=== PATIENT | female | born 1955 | race Caucasian/White ===

== ENCOUNTER 2016-11-13 10:55 | Emergency (ER) | payer OTHER ==
[~2016-11-13] VITALS: Ht 162.6 cm; Wt 63.6 kg
[~2016-11-13 10:55] MED LIST: CIPRO 500MG TA500 MG PO; DEMEROL 50M50 MG/TAB PO; FLAGYL500 MG PO; NO HOME MEDICATIONS; NORCO 325 MG-51 TAB PO; NORCO2.5 PO; SLEEP AID25 M1 PO; ZOFRAN 4MG T4 MG/TAB PO; [UNRECOGNIZED DRUG - OTHER] PO
[2016-11-13 11:02] VITALS: TEMP 98.3
[2016-11-13 12:04] LABS: BASO # 0.1 (0.0-0.2); BASO % 0.9 % (0.0-2.0); EOS % 0.3 % (0-4.0); GRAN # 5.1 (1.4-6.5); GRAN % 69.4 % (42.2-75.2); HEMATOCRIT 46.4 % (37.0-47.0); HEMOGLOBIN 15.7 g/dl (12.5-16.0); LYMPH # 1.6 (1.2-3.4); LYMPH % 22.2 % (20.0-51.0); MEAN CELL VOLUME 84 fl (80.0-100.0); MEAN CORPUSCULAR HEMOGLOBIN 28 pg (27.0-31.0); MEAN CORPUSCULAR HGB CONC 34 g/dl (33.0-37.0); MEAN PLATELET VOLUME 10.3 fl (7.4-10.4); MONO # 0.5 (0.1-0.6); MONO % 6.9 % (1.7-9.3); PLATELET COUNT 299 K/mm3 (130-400); RED BLOOD COUNT 5.56 M/mm3 (4.10-5.30); REDCELL DISTRIBUTION WIDTH-CV 13.9 % (11.5-14.5); WHITE BLOOD COUNT 7.4 K/mm3 (4.8-10.8)
[2016-11-13 12:23] LABS: ALBUMIN 4.6 gm/dL (3.5-5.0); BILIRUBIN,TOTAL 0.8 mg/dL (0.0-1.0); CALCIUM 9.5 mg/dL (8.4-10.2); CREATININE, serum 0.55 mg/dL (0.52-1.25); TOTAL PROTEIN 8.6 gm/dL (6.4-8.2)
[2016-11-13 12:25] LABS: C-REACTIVE PROTEIN 0.5 mg/dL (0.0-0.9)
[2016-11-13 13:44] LABS: PH 7 (5-8); URINE APPEARANCE Clear; URINE BACTERIA Rare /hpf; URINE BILIRUBIN Negative (NEGATIVE); URINE BLOOD Negative (NEGATIVE); URINE COLOR Yellow; URINE GLUCOSE Negative (NEGATIVE); URINE KETONE 1+ (NEGATIVE); URINE RBC 0-2 /hpf; URINE UROBILINOGEN Negative (NEGATIVE); URINE WBC 0-2 /hpf
[2016-11-13] MEDS ORDERED: REGLAN 10MG10 MG/TAB PO (15:04)
[2016-11-13 15:40] VITALS: BP 147/86; PULSE 108
== END 2016-11-13 15:40 | disposition home or self-care (01) ==
LOC: COL.ER 10:55
PROVIDERS: Nurse Practitioner
DX: R11.2 Nausea with vomiting, unspecified (principal); R10.84 Generalized abdominal pain
CPT/HCPCS: J2405; J2550; J2765; J7030

== ENCOUNTER 2018-02-11 13:48 | Emergency (ER) | payer SELFPAY ==
[~2018-02-11] VITALS: Ht 162.6 cm; Wt 60.5 kg
[~2018-02-11 13:48] MED LIST changes: +REGLAN 10MG10 MG/TAB PO
[2018-02-11 14:05] VITALS: BP 141/75; PULSE 108; TEMP 98.9
== END 2018-02-11 15:40 | disposition left against medical advice (07) ==
LOC: COL.ER 13:48
DX: J20.9 Acute bronchitis, unspecified (principal); J06.9 Acute upper respiratory infection, unspecified; F17.210 Nicotine dependence, cigarettes, uncomplicated; Z88.5 Allergy status to narcotic agent

== ENCOUNTER 2018-06-26 09:07 | Emergency (ER) | payer SELFPAY ==
[~2018-06-26] VITALS: Ht 162.6 cm; Wt 56.8 kg
[2018-06-26 09:12] VITALS: TEMP 98
[2018-06-26 10:11] LABS: BASO # 0.1 (0.0-0.2); BASO % 0.6 % (0.0-2.0); EOS % 0.1 % (0-4.0); GRAN # 12.2 (1.4-6.5); GRAN % 76.4 % (42.2-75.2); HEMATOCRIT 41.6 % (37.0-47.0); HEMOGLOBIN 14.2 g/dl (12.5-16.0); LYMPH # 1.4 (1.2-3.4); LYMPH % 8.7 % (20.0-51.0); MEAN CELL VOLUME 83 fl (80.0-100.0); MEAN CORPUSCULAR HEMOGLOBIN 28 pg (27.0-31.0); MEAN CORPUSCULAR HGB CONC 34 g/dl (33.0-37.0); MEAN PLATELET VOLUME 10.9 fl (7.4-10.4); MONO # 2.1 (0.1-0.6); MONO % 13.1 % (1.7-9.3); PLATELET COUNT 244 K/mm3 (130-400); RED BLOOD COUNT 5.01 M/mm3 (4.10-5.30); REDCELL DISTRIBUTION WIDTH-CV 13.8 % (11.5-14.5)
[2018-06-26 10:23] LABS: ALBUMIN 3.7 gm/dL (3.5-5.0); CALCIUM 9.1 mg/dL (8.4-10.2); CREATININE, serum 0.59 mg/dL (0.52-1.25); POTASSIUM 4.1 mmol/L (3.4-5.0); TOTAL PROTEIN 7.9 gm/dL (6.4-8.2)
[2018-06-26 10:30] LABS: COLLECTION METHOD CLEAN CATCH
[2018-06-26 10:37] LABS: MUCOUS Present /lpf; PH 7 (5-8); URINE APPEARANCE Hazy; URINE BACTERIA None Seen /hpf; URINE BILIRUBIN Negative (NEGATIVE); URINE BLOOD Negative (NEGATIVE); URINE COLOR Amber; URINE GLUCOSE Negative (NEGATIVE); URINE KETONE Trace (NEGATIVE); URINE LEUKOCYTE ESTERASE Negative (NEGATIVE); URINE NITRATE Negative (NEGATIVE); URINE PROTEIN(semi-quant) 1+ (NEGATIVE); URINE UROBILINOGEN >=4.0 mg/dL (NEGATIVE)
[2018-06-26 10:47] LABS: C-REACTIVE PROTEIN 16.3 mg/dL (0.0-0.9)
[2018-06-26] MEDS ORDERED: LEVAQUIN 750MG750 M1 PO (11:24)
[2018-06-26] MEDS ORDERED: CLEOCIN HCL300 MG PO (11:24)
[2018-06-26 13:15] VITALS: BP 142/90; PULSE 89
== END 2018-06-26 13:20 | disposition home or self-care (01) ==
LOC: COL.ER 09:07
PROVIDERS: Physician Assistant
DX: J10.1 Influenza due to other identified influenza virus with other respiratory manifestations (principal); F17.210 Nicotine dependence, cigarettes, uncomplicated; Z88.5 Allergy status to narcotic agent
CPT/HCPCS: J1885; J1956; J2405; J7030; Q9967

== ENCOUNTER 2020-10-23 19:29 | Emergency (ER) | payer MEDICARE ==
[~2020-10-23 19:29] MED LIST changes: +CLEOCIN HCL300 MG PO; +LEVAQUIN 750MG750 M1 PO
== END 2020-10-23 20:09 | disposition left against medical advice (07) ==
LOC: COL.ER 19:29
DX: R52 Pain, unspecified (principal)

== ENCOUNTER 2020-10-24 11:11 | Emergency (ER) | payer MEDICARE ==
[~2020-10-24] VITALS: Ht 162.6 cm; Wt 63.6 kg
[2020-10-24 11:18] VITALS: TEMP 97.9
[2020-10-24 13:15] VITALS: BP 138/89; PULSE 87
== END 2020-10-24 12:45 | disposition home or self-care (01) ==
LOC: COL.ER 11:11
DX: S52.571A Other intraarticular fracture of lower end of right radius, initial encounter for closed fracture (principal); W01.0XXA Fall on same level from slipping, tripping and stumbling without subsequent striking against object, initial encounter

== ENCOUNTER 2020-12-22 18:55 | Emergency (ER) | payer MEDICARE ==
[~2020-12-22] VITALS: Ht 162.6 cm; Wt 63.6 kg
[2020-12-22 19:13] VITALS: TEMP 97.7
[2020-12-22 20:05] LABS: BASO % 0.3 % (0.0-2.0); GRAN # 7.1 (1.4-6.5); GRAN % 79.5 % (42.2-75.2); HEMATOCRIT 47.8 % (37.0-47.0); HEMOGLOBIN 15.6 g/dl (12.5-16.0); LYMPH # 1.2 (1.2-3.4); LYMPH % 12.9 % (20.0-51.0); MEAN CELL VOLUME 83 fl (80.0-100.0); MEAN CORPUSCULAR HEMOGLOBIN 27 pg (27.0-31.0); MEAN CORPUSCULAR HGB CONC 33 g/dl (33.0-37.0); MEAN PLATELET VOLUME 10.5 fl (7.4-10.4); MONO # 0.6 (0.1-0.6); PLATELET COUNT 299 K/mm3 (130-400); RED BLOOD COUNT 5.74 M/mm3 (4.10-5.30); REDCELL DISTRIBUTION WIDTH-CV 14.3 % (11.5-14.5)
[2020-12-22 20:18] LABS: ALBUMIN 4.6 gm/dL (3.5-5.0); BILIRUBIN,TOTAL 0.9 mg/dL (0.0-1.0); CALCIUM 9.3 mg/dL (8.4-10.2); CREATININE, serum 0.4 (0.52-1.25); TOTAL PROTEIN 8.6 gm/dL (6.4-8.2)
[2020-12-22] MEDS ORDERED: AMOXICILLIN 8751 TAB PO (21:33)
[2020-12-22] MEDS ORDERED: ZOFRAN ODT4 MG PO (21:33)
[2020-12-22 21:35] LABS: COLLECTION METHOD CLEAN CATCH
[2020-12-22 21:40] LABS: PH 6 (5-8); URINE APPEARANCE Clear; URINE BACTERIA None Seen /hpf; URINE BILIRUBIN Negative (NEGATIVE); URINE BLOOD 1+ (NEGATIVE); URINE COLOR Yellow; URINE GLUCOSE Negative (NEGATIVE); URINE KETONE 2+ (NEGATIVE); URINE LEUKOCYTE ESTERASE 1+ (NEGATIVE); URINE NITRATE Negative (NEGATIVE); URINE PROTEIN(semi-quant) Negative (NEGATIVE); URINE UROBILINOGEN Negative (NEGATIVE)
[2020-12-22 21:56] VITALS: BP 126/70; PULSE 76
== END 2020-12-22 21:56 | disposition home or self-care (01) ==
LOC: COL.ER 18:55
PROVIDERS: Emergency Medicine
DX: K52.9 Noninfective gastroenteritis and colitis, unspecified (principal)
CPT/HCPCS: J2405; J7030; Q9967

== ENCOUNTER 2023-04-03 01:09 | Observation (INO) | payer MEDICARE ==
[~2023-04-03] VITALS: Ht 162.6 cm; Wt 60.0 kg
[~2023-04-03 01:09] MED LIST changes: +AMOXICILLIN 8751 TAB PO; +BREZTRI AEROS10.7 GM IH; +DECADRON 4MG TAB4 MG PO; +DESYREL 50MG50 MG PO; +DOXYCYCLINE 10100 MG PO; +IPRATROPIUM BROM3 M1 IH; +LEVAQUIN 5500 MG/TA1 PO; +MOBIC 7.5MG7.5 MG PO; +NEB MC; +NORCO 325 MG-7.1 TAB PO; +OXYGEN NASAL.CANN; +PRIL40 PO; +PROAIR HFA0.09 MG/AC IH; +SALONPAS1 EACH; +STOOL SOFTENER100 M2 PO; +TOPROL XL 25MG25 MG PO; +TYLENOL 500MG500 MG PO; +ULTRAM 50MG TAB50 MG PO; +ZOFRAN ODT4 MG PO
[2023-04-03 01:25] LABS: HEMOGLOBIN 11.2 g/dl (12.5-16.0); MEAN CELL VOLUME 79 fl (80.0-100.0); MEAN CORPUSCULAR HEMOGLOBIN 26 pg (27-31); MEAN CORPUSCULAR HGB CONC 33 g/dl (33.0-37.0); MEAN PLATELET VOLUME 10.3 fl (7.4-10.4); PLATELET COUNT 271 K/mm3 (130-400); RED BLOOD COUNT 4.29 M/mm3 (4.10-5.30); REDCELL DISTRIBUTION WIDTH-CV 14.5 % (11.5-14.5)
[2023-04-03 01:27] LABS: HEMATOCRIT 33.7 % (37.0-47.0)
[2023-04-03 01:43] LABS: BILIRUBIN,TOTAL 0.3 mg/dL (0.2-1.2); C-REACTIVE PROTEIN 23.91 mg/dL (0.00-0.50); CALCIUM 9.6 mg/dL (8.4-10.2); CREATININE, serum 0.52 mg/dL (0.57-1.11); POTASSIUM 4.1 mmol/L (3.5-4.5); TOTAL PROTEIN 6.3 gm/dL (6.2-8.1)
[2023-04-03 01:46] LABS: BAND 9 % (0-10); LYMPHOCYTE 16 % (20.0-51.0); METAMYELOCYTE 1 % (0-0); NEUTROPHILS 67 % (42.0-75.2); NUCLEATED RED BLOOD CELL 1 (0-6)
[2023-04-03 01:47] LABS: PLATELET ESTIMATE NORMAL (NORMAL)
[2023-04-03 01:49] LABS: TROPONIN-I 0.01 ng/mL (0.00-0.033)
[2023-04-03 02:48] LABS: COLLECTION METHOD CLEAN CATCH
[2023-04-03 03:02] LABS: PH 5.5 (5.0-8.5); URINE APPEARANCE Clear (CLEAR/HAZY); URINE BLOOD Negative (NEGATIVE); URINE COLOR Yellow (YELLOW); URINE GLUCOSE Negative (NEGATIVE); URINE KETONE TRACE (NEGATIVE); URINE NITRATE Negative (NEGATIVE); URINE PROTEIN(semi-quant) 1+ (NEGATIVE); URINE UROBILINOGEN 0.2 E.U/dL (0.2-1.0)
[2023-04-03 03:03] LABS: MUCOUS Present (NOT PRESENT); SQUAMOUS EPITHELIAL 0-2 /hpf (0-10); URINE BACTERIA Occasional /hpf (NONE SEEN); URINE RBC 0-2 /hpf (0-2)
[2023-04-03] MEDS ORDERED: NICODERM C21 MG/PATC TD (04:29)
[2023-04-03] MEDS ORDERED: REMERON 15M15 MG/TA1 PO (04:30)
[2023-04-03] MEDS ORDERED: ATIVAN 1MG T1 MG/TAB PO (04:31)
[2023-04-03] MEDS ORDERED: FENTANYL 12MCG TD (04:32)
[2023-04-03 06:00] VITALS: BP 137/82; PULSE 119; TEMP 98.6
--- NOTE | 2023-04-03 06:25 | NUR ---
PT ARRIVED TO THE MEDICAL FLOOR AROUND 0530HRS TO ROOM 312. PT A&O X 4 WITH SOME CONFUSION WHEN ASKED ABOUT MEDICAL HISTORY. VSS WITH ELEVATED HR; O2 4L VIA NC, PT COMPLAINED OF CONSTIPATION. PT STATED HER LAST BM WAS 04/02/23. WILL PASS ON TO DAYSHIFT RN, TO SPEAK WITH HOSPITALIST CONCERNING STOOL SOFTNER. PT DENIED GENERAL PAIN, CHEST PAIN, PALPITATIONS, SOB, N,V,D OR DIZZINESS. ADMISSIONS ASSESSMENT COMPLETE. UNABLE TO COMPLETE MED REC DUE TO PT NOT KNOWING HER MEDS AND NOT ENOUGH TIME TO GET THROUGH MED LIST BEFORE SHIFT CHANGE. PT ORIENTED TO ROOM AND HOSPITAL POLICY. ALL QUESTIONS AND CONCERNS ADDRESSED. FALL PRECATIONS IN PLACE. BED ALARM ON. CALL LIGHT WITHIN REACH.
[2023-04-03 08:28] VITALS: BP 123/76; PULSE 126; TEMP 98.3
[2023-04-03 11:46] VITALS: BP 138/86; PULSE 114; TEMP 97.8
--- NOTE | 2023-04-03 12:50 | NUR ---
Data: Line Out Worker visit attempted during Line Out Worker rounds. Assessment: ASSOCIATE PROFESSOR OF COUNSELING was with Patient. No visit completed. Plan of Care: Chaplains will remain available as needed/desired while Patient is admitted to this hospital.
[2023-04-03 13:00] VITALS: BP_SYST 138
[2023-04-03] MEDS ORDERED: NORCO 325 MG-51 TAB PO (13:16)
--- NOTE | 2023-04-03 15:30 | NUR ---
Patient is going to be transported by family to [facility].
== END 2023-04-03 15:31 ==
LOC: COL.ER 01:09 → MEDICAL 03:31
PROVIDERS: Nurse Practitioner Primary Care; ADMIT Hospitalist
DX: R41.82 Altered mental status, unspecified (principal); J96.10 Chronic respiratory failure, unspecified whether with hypoxia or hypercapnia; J44.9 Chronic obstructive pulmonary disease, unspecified; E87.20 Acidosis, unspecified; E86.0 Dehydration; R91.8 Other nonspecific abnormal finding of lung field; G47.00 Insomnia, unspecified; Z79.899 Other long term (current) drug therapy; Z87.891 Personal history of nicotine dependence; Z99.81 Dependence on supplemental oxygen
CPT/HCPCS: G0378; J1650; J7030; Q9967

== ENCOUNTER 2023-05-03 13:38 | Inpatient (IN) | payer MEDICARE ==
[~2023-05-03] VITALS: Ht 162.6 cm; Wt 53.2 kg
[~2023-05-03 13:38] MED LIST changes: +ATIVAN 1MG T1 MG/TAB PO; +FENTANYL 25 MCG TD; +LIDODERM 5% PATC1 EA TP; +NICODERM C21 MG/PATC TD; +REMERON 15M15 MG/TA1 PO; -SALONPAS1 EACH
[2023-05-03] MEDS ORDERED: NS 1,000 ML IV ONE (14:30)
[2023-05-03] MEDS ORDERED: fentaNYL 50 MCG/ML 2 ML VIAL IV ONE (15:00)
[2023-05-03 15:34] LABS: MEAN CELL VOLUME 77 fl (80.0-100.0); MEAN CORPUSCULAR HGB CONC 33 g/dl (33.0-37.0); MEAN PLATELET VOLUME 10.3 fl (7.4-10.4); PLATELET COUNT 276 K/mm3 (130-400); RED BLOOD COUNT 2.92 M/mm3 (4.10-5.30); REDCELL DISTRIBUTION WIDTH-CV 18.2 % (11.5-14.5)
[2023-05-03 15:37] LABS: HEMATOCRIT 22.6 % (37.0-47.0); HEMOGLOBIN 7.5 g/dl (12.5-16.0); MEAN CORPUSCULAR HEMOGLOBIN 26 pg (27-31)
[2023-05-03 15:47] LABS: COLLECTION METHOD CLEAN CATCH
[2023-05-03 15:50] LABS: BAND 10 % (0-10); LYMPHOCYTE 8 % (20.0-51.0); NEUTROPHILS 80 % (42.0-75.2)
[2023-05-03 15:51] LABS: MICROCYTOSIS 1+; PLATELET ESTIMATE NORMAL (NORMAL)
[2023-05-03 15:52] LABS: OVALOCYTES 1+
[2023-05-03 15:57] LABS: ALANINE AMINOTRANSFERASE 34 U/L (0-55); ALBUMIN 2.3 gm/dL (3.4-4.8); ALKALINE PHOSPHATASE 394 U/L (40-150); ANION GAP 10 mmol/L (7-16); AST,SGOT 22 U/L (5-34); BILIRUBIN,TOTAL 0.4 mg/dL (0.2-1.2); BLOOD UREA NITROGEN 5 mg/dL (10-20); CALCIUM 6.5 mg/dL (8.4-10.2); CARBON DIOXIDE 21 mmol/L (23-31); CHLORIDE 103 mmol/L (98-107); CREATININE, serum 0.38 mg/dL (0.57-1.11); GLUCOSE 104 mg/dL (70-99); POTASSIUM 3.9 mmol/L (3.5-4.5); SODIUM 134 mmol/L (136-145); TOTAL PROTEIN 5.2 gm/dL (6.2-8.1)
[2023-05-03 16:06] LABS: TROPONIN-I < 0.010 ng/mL (0.00-0.033)
[2023-05-03 16:09] LABS: PH 8.5 (5.0-8.5); URINE APPEARANCE Clear (CLEAR/HAZY); URINE BACTERIA Rare /hpf (NONE SEEN); URINE BLOOD Negative (NEGATIVE); URINE COLOR Yellow (YELLOW); URINE GLUCOSE Negative (NEGATIVE); URINE KETONE Negative (NEGATIVE); URINE NITRATE Negative (NEGATIVE); URINE PROTEIN(semi-quant) Negative (NEGATIVE); URINE UROBILINOGEN 0.2 E.U/dL (0.2-1.0)
[2023-05-03 16:10] LABS: URINE RBC None Seen /hpf (0-2)
[2023-05-03] MEDS ORDERED: NS 100 ML IV SCH (16:13)
[2023-05-03] MEDS ORDERED: Iohexol 300 - 100 ML VIAL IV ONE (16:13)
[2023-05-03] MEDS ORDERED: NS 1,000 ML IV SCH (18:00)
[2023-05-03] MEDS ORDERED: Ondansetron 4 MG/2 ML VIAL IV PRN (18:00)
[2023-05-03] MEDS ORDERED: fentaNYL 50 MCG/ML 2 ML VIAL IV PRN (18:00)
[2023-05-03 18:34] LABS: AMYLASE 41 U/L (25-125); LACTATE DEHYDROGENASE 512 U/L (125-220); LIPASE 6 U/L (8-78)
[2023-05-03 18:48] VITALS: BP 115/76; PULSE 104; TEMP 97.6
--- NOTE | 2023-05-03 19:41 | NUR ---
Patient arrived to room 307 at approximately 1850 with diagnosis of acute diverticulitis. Intake completed, pharmacy and allergies removed. Bedside report given to Mojgan Callahan RN and she will complete physical assessment and med reconciliation.
[2023-05-03] MEDS ORDERED: ANTACID500 M1 PO (19:42)
[2023-05-03] MEDS ORDERED: MIRALAX PA17 GM/Dose PO (19:47)
[2023-05-03] MEDS ORDERED: PREDNISONE20 MG PO (19:48)
[2023-05-03] MEDS ORDERED: NICODERM C14 MG/PATC TD (19:49)
[2023-05-03] MEDS ORDERED: ROXICODONE 55 MG/TAB PO (19:50)
[2023-05-03 20:00] VITALS: BP 113/68; BP_SYST 112; PULSE 77; TEMP 98.2
--- NOTE | 2023-05-03 20:00 | NUR ---
Bedisde shift report received from LAURA Cheung. Admission assessment complete. Daughter is at bedside. Patient is very drowsy but gives permission for daughter to answer questions. Patient is A&Ox4. Rating pain 10/10 on pain scale to back and abdomen-described as constant throbbing. Will medicate once orders are in. Med rec updated using recent records from [facility] and daughters input. VS currently stable. TELE on. Noted to have +1 bilat lower ext edema. INT to left hand flushes well but patient states it hurts when used and requests PICC line be used. NS@75ml/hr initiated to red port. FLushes well but no blood return currently. On RA. Will place SCDs. Instructed diet order is NPO at this time. Vervalizes understanding. COLEMAN Kilpatrick at bedside for admission. Will monitor.
[2023-05-03] MEDS ORDERED: NARCAN4 MG NS (20:37)
[2023-05-03] MEDS ORDERED: ATIVAN 0.50.5 MG/TAB PO (20:37)
[2023-05-03] MEDS ORDERED: Lidocaine 4% Topical Patch TP PRN (20:45)
[2023-05-03] MEDS ORDERED: Albuterol 0.083% Neb Soln 2.5 MG/3 ML UD IH PRN (20:45)
[2023-05-03] MEDS ORDERED: Acetaminophen 500 MG TAB PO PRN (20:45)
[2023-05-03] MEDS ORDERED: oxyCODONE 5 MG TAB PO PRN (20:45)
[2023-05-03] MEDS ORDERED: fentaNYL 25 MCG 72 HR PATCH TD SCH (20:45)
[2023-05-03 21:00] VITALS: BP_SYST 113
[2023-05-03] MEDS ORDERED: LORazepam 0.5 MG TAB PO SCH (21:00)
[2023-05-03] MEDS ORDERED: Mirtazapine 15 MG TAB PO SCH (21:00)
[2023-05-03] MEDS ORDERED: Budesonide/Glycopyrrolate/Formoterol **** subs to Budesonide + Umeclid/Vilant IH SCH (21:00)
[2023-05-03] MEDS ORDERED: traZODone 50 MG TAB PO SCH (21:00)
[2023-05-04] VITALS (20 sets, daily range): BP systolic 19–146; BP diastolic 53–86; PULSE 86–104; TEMP 97.6–98.9
--- NOTE | 2023-05-04 05:31 | NUR ---
Patient had an uneventful night. Received one dose of fentanyl and one dose oxycodone for back pain. Denies abdominal pain and is requesting food. CUrrently remains NPO. PICC to right upper arm flushes well with good blood return. NS@75ml/hr infusing without difficulty. SCDs. Tele reporting SR. Denies current needs. Call light in reach. Will monitor.
[2023-05-04 06:27] LABS: MEAN CELL VOLUME 78 fl (80.0-100.0); MEAN CORPUSCULAR HGB CONC 33 g/dl (33.0-37.0); MEAN PLATELET VOLUME 10.7 fl (7.4-10.4); PLATELET COUNT 248 K/mm3 (130-400); RED BLOOD COUNT 2.67 M/mm3 (4.10-5.30); REDCELL DISTRIBUTION WIDTH-CV 19.1 % (11.5-14.5)
[2023-05-04 06:30] LABS: HEMATOCRIT 20.9 % (37.0-47.0); MEAN CORPUSCULAR HEMOGLOBIN 26 pg (27-31)
[2023-05-04 06:32] LABS: HEMOGLOBIN 6.9 g/dl (12.5-16.0)
--- NOTE | 2023-05-04 06:38 | NUR ---
Critical labs HGB 6.9/WBC 25.[address] Jade at this time.
[2023-05-04 06:44] LABS: CREATININE, serum 0.43 mg/dL (0.57-1.11); POTASSIUM 3.7 mmol/L (3.5-4.5)
[2023-05-04 06:49] LABS: CALCIUM 5.9 mg/dL (8.4-10.2)
--- NOTE | 2023-05-04 06:51 | NUR ---
Report given to Mildred Bardales RN.
[2023-05-04 06:52] LABS: ANISOCYTOSIS 2+; BAND 3 % (0-10); HYPOCHROMIA 1+; LYMPHOCYTE 5 % (20.0-51.0); MICROCYTOSIS 1+; NEUTROPHILS 89 % (42.0-75.2); PLATELET ESTIMATE NORMAL (NORMAL)
[2023-05-04 06:53] LABS: SCHISTOCYTES 1+; TEAR DROP CELLS 1+
[2023-05-04] MEDS ORDERED: Budesonide Neb Susp 0.5 MG/2 ML AMP IH SCH (07:00)
[2023-05-04] MEDS ORDERED: Omeprazole 40 MG **** subs to Pantoprazole 40 MG PO SCH (07:00)
--- NOTE | 2023-05-04 08:11 | NUR ---
PT O2SAT 87% ON ROOM AIR ON ASSESSMENT THIS MORNING. PT PLACED ON 2L O2 VIA NC, NO COMPLAINT OF SHORTNESS OR BREATH OR DIFFICULTY BREATHING, PT OTHERWISE RESTING IN THE BED. NO COMPLAINT OF PAIN ON ASSESSMENT. PT REFUSED NICOTINE PATCH THIS MORNING STATING SHE DOESNT FEEL LIKE SHE NEEDS IT ANYMORE. PT REQUESTING TO ADVNACE HER DIET. NO COMPLAINTS OF ABDOMINAL PAIN THIS MORNING.
[2023-05-04] MEDS ORDERED: Nicotine 14 MG DAILY PATCH TD SCH (09:00)
[2023-05-04] MEDS ORDERED: Umeclidinium/Vilanterol 62.5-25 MCG INHALATION/INHALER IH SCH (09:00)
[2023-05-04 12:35] LABS: HEMATOCRIT 19.9 % (37.0-47.0)
[2023-05-04 12:36] LABS: HEMOGLOBIN 6.5 g/dl (12.5-16.0)
--- NOTE | 2023-05-04 12:41 | NUR ---
LAB NOTIFIED THIS NURSE OF CRITICAL VALUE, HGB 6.5. THIS NURSE NOTIFIED HOSPITALIST OF UPDATE.
--- NOTE | 2023-05-04 13:58 | NUR ---
HBG 6.5, PT AGREED TO HAVE 1UNIT PRBC TRANSFUSED. CONSENT FOR TRANSFUSION SIGNED. TRANSUFSION STARTED AT 1340, TOLERATING WELL.
[2023-05-04] MEDS ORDERED: DESYREL 50MG50 MG PO (14:59)
[2023-05-04] MEDS ORDERED: CINVANTI130 MG/18 IV (15:08)
[2023-05-04] MEDS ORDERED: PARAPLATIN150 MG/VIA IV (15:09)
--- NOTE | 2023-05-04 17:27 | NUR ---
fat purification worker met with patient to discuss discharge planning. Patient's best point of contact is Pretty (daughter) P# [phone] or Tanisha (daughter) P# [phone]. PCP is Dr. Garcia and preferred pharmacy is [facility]. No issues affording medications at this time. No DPOA-HC and was not interested in completing one at this time. Patient has a walker and shower chair at home. Patient reports to be previously independent with [facility] prior to hospitalization. Patient has a form of transportation for appointments. Patient would like to return home at time of discharge. Patient reports she has previously had home health before she was hospitalized at [facility]. Patient did not know the agency but stated Pretty would know. SW contacted Pretty whom expressed patient previously had [facility] but that was only once before she was admitted to [facility] for 6 weeks. DIVINA discussed options in the area for home health if patient were to discharge home with home health. DIVINA expresed she would follow up with recommendations when they determine if patient would be cleared to return home or if she needed additional services before returning home. Pretty understood. Discharge plan: Home
--- NOTE | 2023-05-04 20:00 | NUR ---
PT A&O X4 LAYING IN BED. VSS ON ROOM AIR. PT STATING ABD & BACK PAIN IS / & REQUESTING PAIN MEDS, GIVEN PRN OXY. PT HAS FENTANYL PATCH FROM 05/03 TO RIGHT CHEST. PICC TO RIGHT UPPER ARM WITH NS INFUSING @ 75. PT DENYING FURTHER NEEDS. CALL LIGHTS IN REACH.
[2023-05-04] MEDS ORDERED: Pantoprazole 40 MG in NS 10 ML IV SCH (21:00)
--- NOTE | 2023-05-04 23:37 | NUR ---
PT RESTING IN BED WITH EVEN & UNLABORED RESP. CALL LIGHT IN REACH
[2023-05-05] VITALS (12 sets, daily range): BP systolic 127–136; BP diastolic 70–84; PULSE 95–112; TEMP 97.8–98.9
--- NOTE | 2023-05-05 05:49 | NUR ---
PT SLEPT IN BED THROUGHOUT THE NIGHT. WAS GIVEN PRN OXYCODONE FOR PAIN. PT DENYING FURTHER NEEDS AT THIS TIME. CALL LIGHTS IN REACH.
[2023-05-05 07:05] LABS: MEAN CELL VOLUME 78 fl (80.0-100.0); MEAN CORPUSCULAR HGB CONC 33 g/dl (33.0-37.0); MEAN PLATELET VOLUME 10.1 fl (7.4-10.4); PLATELET COUNT 192 K/mm3 (130-400); RED BLOOD COUNT 2.98 M/mm3 (4.10-5.30); REDCELL DISTRIBUTION WIDTH-CV 17.8 % (11.5-14.5)
[2023-05-05 07:08] LABS: HEMATOCRIT 23.2 % (37.0-47.0); HEMOGLOBIN 7.6 g/dl (12.5-16.0); MEAN CORPUSCULAR HEMOGLOBIN 26 pg (27-31)
[2023-05-05 07:26] LABS: BILIRUBIN,TOTAL 0.5 mg/dL (0.2-1.2); CREATININE, serum 0.41 mg/dL (0.57-1.11); MAGNESIUM 1.6 mg/dL (1.6-2.6); POTASSIUM 3.3 mmol/L (3.5-4.5); TOTAL PROTEIN 4.9 gm/dL (6.2-8.1)
[2023-05-05 07:38] LABS: CALCIUM 5.9 mg/dL (8.4-10.2)
[2023-05-05 08:06] LABS: BAND 6 % (0-10); LYMPHOCYTE 11 % (20.0-51.0); NEUTROPHILS 83 % (42.0-75.2)
[2023-05-05 08:07] LABS: PLATELET ESTIMATE NORMAL (NORMAL)
[2023-05-05 08:08] LABS: ANISOCYTOSIS 1+
[2023-05-05 08:10] LABS: HYPOCHROMIA 1+; MICROCYTOSIS 1+
[2023-05-05] MEDS ORDERED: CINVANTI130 MG/18 (08:25)
[2023-05-05] MEDS ORDERED: CARBOPLATIN (08:25)
[2023-05-05] MEDS ORDERED: [UNRECOGNIZED DRUG - OTHER] (08:25)
[2023-05-05] MEDS ORDERED: DECADRON0.5 MG (08:26)
[2023-05-05] MEDS ORDERED: IMFINZI120 MG/2.4 (08:26)
[2023-05-05] MEDS ORDERED: [UNRECOGNIZED DRUG - OTHER] (08:27)
[2023-05-05] MEDS ORDERED: UDENYCA (08:28)
[2023-05-05] MEDS ORDERED: ALOXII (08:29)
[2023-05-05] MEDS ORDERED: ZOMETA4 MG/5 ML (08:31)
--- NOTE | 2023-05-05 09:04 | NUR ---
PT RESTING IN BED THIS MORNING ON ASSESSMENT. HAVING INCREASED PAIN, PRN TYLENOL GIVEN, EFFECTIVE. PT ALSO STATED SHE FEELS SHE IS DEVELOPING THRUSH AGAIN, STATED SHE WAS TREATED FOR IT DURING A RECENT HOSPITALIZATION AT A DIFFERENT FACILITY.
[2023-05-05] MEDS ORDERED: Nystatin Oral Susp 100,000 UNITS/ML 5 ML UD PO SCH (09:23)
[2023-05-05] MEDS ORDERED: Magnesium Sulfate 2 GM/50 ML IV SOLN IV ONE (09:30)
[2023-05-05] MEDS ORDERED: Potassium Bicarbonate/Citrate 20 MEQ Effervescent TAB PO SCH (09:30)
[2023-05-05] MEDS ORDERED: *Potassium Replacement Protocol MC SCH (09:30)
[2023-05-05] MEDS ORDERED: CALCIUM GLUCONATE IV SCH (12:00)
[2023-05-05] MEDS ORDERED: NS IV SCH (12:00)
--- NOTE | 2023-05-05 13:25 | NUR ---
Initial visit; Patient thanked Care Technician for introducing herself and letting her know of the availability of [facility] at our hospital. Patient was receptive to having Care Technician keep her in her prayers. Care Technician offered God's blessings.
[2023-05-05] MEDS ORDERED: Calcium Carbonate 500 MG TAB PO SCH (17:00)
--- NOTE | 2023-05-05 19:29 | NUR ---
Bedside shift report given by Mildred walter patch noted on rt upper chest.
--- NOTE | 2023-05-05 20:00 | NUR ---
UPON SHIFT ASSESSMENT, JOE WAS AWAKE AND AXO X 4 WITH FAMILY BEDSIDE. BOWEL SOUNDS WERE PRESENT IN ALL FOUR QUADRANTS. SHE C/O OF NAUSEA BUT NO C/O ABDOMINAL PAIN. ABDOMEN IS SOFT AND PALPABLE. VS ARE WNL AND TELE IS NS PACED. JOE REQUESTED MEDS TO BE ADMINISTERED AT 20:15 SO THAT, "I CAN GET DONE AND GET TO SLEEP." CALL LIGHT WITHIN REACH.
--- NOTE | 2023-05-05 21:00 | NUR ---
CALL PLACED TO HOSPITALISTJAKE. FENTANYL PATCH REMOVED ACCIDENTLY INSTEAD OF NICOTINE PATCH. TORB FOR ONE TIME PATCH REPLACEMENT-FENTANYL GIVEN. CALLED PHARMACY AND HAD PATCH REMOVAL RETIMED. THE REMOVED PATCHED WAS WITNESSED WASTE AND PLACED IN DRUG BUSTER.
[2023-05-05] MEDS ORDERED: fentaNYL 25 MCG 72 HR PATCH TD ONE (21:45)
[2023-05-06] VITALS (11 sets, daily range): BP systolic 116–136; BP diastolic 67–78; PULSE 92–100; TEMP 97.4–99.8
[2023-05-06 07:43] LABS: MEAN CELL VOLUME 78 fl (80.0-100.0); MEAN CORPUSCULAR HGB CONC 33 g/dl (33.0-37.0); MEAN PLATELET VOLUME 10.6 fl (7.4-10.4); PLATELET COUNT 179 K/mm3 (130-400); RED BLOOD COUNT 3.15 M/mm3 (4.10-5.30); REDCELL DISTRIBUTION WIDTH-CV 18.2 % (11.5-14.5)
[2023-05-06 07:46] LABS: HEMATOCRIT 24.6 % (37.0-47.0); HEMOGLOBIN 8.1 g/dl (12.5-16.0); MEAN CORPUSCULAR HEMOGLOBIN 26 pg (27-31)
[2023-05-06 07:57] LABS: CALCIUM 7.2 mg/dL (8.4-10.2); CREATININE, serum 0.4 mg/dL (0.57-1.11); POTASSIUM 3.8 mmol/L (3.5-4.5)
[2023-05-06 08:10] LABS: BAND 9 % (0-10); LYMPHOCYTE 27 % (20.0-51.0); NEUTROPHILS 61 % (42.0-75.2); PLATELET ESTIMATE NORMAL (NORMAL); TARGET CELLS 1+
--- NOTE | 2023-05-06 10:53 | NUR ---
Patient alert and oriented x4, complains of generalized pain 6/10. PRN Roxicodone administered. Low appetite this morning, patient appears fatigued. States she had a BM this morning, stool sample collected and sent to lab. Zosyn running at 25ml/hr through right arm PICC line. Advanced IV services called for dressing change to PICC line. Patient in bed with call light in reach, at bedside. All needs met at this time.
[2023-05-06] MEDS ORDERED: Potassium Bicarbonate/Citrate 20 MEQ Effervescent TAB PO ONE (15:15)
[2023-05-06] MEDS ORDERED: Azithromycin 250 MG TAB PO ONE (17:15)
--- NOTE | 2023-05-06 18:36 | NUR ---
Patient remains at baseline. Complains of discomfort to stomach as well as ongoing pain. No increase in pain level at this time. PRN Roxicodone administered around 1430 with minimal effectiveness. Patient has low appetite. Caps changed to purple PICC port, but this nurse was unable to remove old cap from red PICC port. special diet cook and advanced IV services attempted and were also unsuccsessful. Purple port is patent and has adequate blood return. Zosyn running per orders at this time, patient in bed with call light in reach. All needs met at this time.
--- NOTE | 2023-05-06 20:00 | NUR ---
UPON SHIFT ASSESSMENT, JOE WAS UP IN BED AXO X 4 C/O BEING COLD. WARM BLANKETS PROVIDED. VS WNL, TELE IS NS. ABDOMEN IS SOFT AND BOWEL SOUNDS AUDIBLE. CURRENTLY, JOE C/O OF NO CHEST PAIN, SOA OR ABDOMINAL PAIN. CALL LIGHT WITHIN REACH
[2023-05-06] MEDS ORDERED: fentaNYL Patch Removal/Drugbuster TD SCH (21:00)
[2023-05-07 01:00] VITALS: BP_SYST 116
[2023-05-07 01:02] VITALS: BP 116/69; PULSE 105; TEMP 98.4
[2023-05-07 04:57] VITALS: BP 118/80; PULSE 98; TEMP 98.9
[2023-05-07 05:00] VITALS: BP_SYST 118
--- NOTE | 2023-05-07 06:42 | NUR ---
ENTERED PATIENT'S ROOM TO FIND PATIENT KNEELING BESIDE BED. PATIENT DENIED FALLING, STATED ABDOMEN HURTS AND NEEDED TO KNEEL. RETURNED PATIENT TO BED ASSESSED ABDOMEN-SOFT, AND NO PAIN WITH PALPATION, BOWEL SOUNDS AUDIBLE IN ALL 4 QUADRANTS.
[2023-05-07 07:15] VITALS: BP 137/77; PULSE 97; TEMP 97.8
[2023-05-07 09:00] VITALS: BP_SYST 137
[2023-05-07 09:02] LABS: MEAN CELL VOLUME 78 fl (80.0-100.0); MEAN CORPUSCULAR HGB CONC 33 g/dl (33.0-37.0); MEAN PLATELET VOLUME 10.8 fl (7.4-10.4); PLATELET COUNT 158 K/mm3 (130-400); RED BLOOD COUNT 3.11 M/mm3 (4.10-5.30); REDCELL DISTRIBUTION WIDTH-CV 18.6 % (11.5-14.5)
[2023-05-07 09:03] LABS: HEMATOCRIT 24.3 % (37.0-47.0); MEAN CORPUSCULAR HEMOGLOBIN 26 pg (27-31)
[2023-05-07 09:21] LABS: ALBUMIN 2.1 gm/dL (3.4-4.8); BILIRUBIN,TOTAL 0.5 mg/dL (0.2-1.2); CALCIUM 7.4 mg/dL (8.4-10.2); CREATININE, serum 0.39 mg/dL (0.57-1.11); POTASSIUM 3.8 mmol/L (3.5-4.5); TOTAL PROTEIN 5.2 gm/dL (6.2-8.1)
[2023-05-07 09:51] LABS: BAND 7 % (0-10); LYMPHOCYTE 37 % (20.0-51.0); NEUTROPHILS 47 % (42.0-75.2); PLATELET ESTIMATE NORMAL (NORMAL)
[2023-05-07] MEDS ORDERED: Iohexol 300 - 100 ML VIAL IV ONE (09:51)
[2023-05-07 09:52] LABS: MICROCYTOSIS 1+
[2023-05-07 09:53] LABS: HYPOCHROMIA 1+
[2023-05-07] MEDS ORDERED: NYSTATIN OR100 MU/ML PO (10:22)
[2023-05-07] MEDS ORDERED: AMOXICILLIN 8751 TAB PO (10:23)
--- NOTE | 2023-05-07 11:05 | NUR ---
PATIENT STATED SHE FEELS LIKE SHE CAN MANAGE HER PAIN AT HOME. PATIENTS PICC LINE FLUSHED (PER PICC TEAM PATIENT CAME WITH PICC LINE FOR CHEMO INFUSIONS AT HOME, AND IS TO KEEP IT, MD AWARE) PATIENTS TELE DISCONTINUED. DISCHARGE INSTRUCTIONS AND EDUCATION GIVEN, PATIENT DENIES ANY NEEDS OR COMPLAINTS AT THIS TIME. PATIENT TAKEN VIA WHEELCHAIR TO [facility] BY PCT, WHERE SHE LEFT IN STABLE CONDITION IN THE CARE OF HER PARTNER.
[2023-05-08] MEDS ORDERED: fentaNYL 25 MCG 72 HR PATCH TD SCH (21:00)
[2023-05-08] MEDS ORDERED: fentaNYL Patch Removal/Drugbuster TD SCH (21:00)
[2023-05-08] MEDS ORDERED: fentaNYL Patch Removal/Drugbuster TD ONE (22:00)
== END 2023-05-07 11:05 | disposition home or self-care (01) | DRG 872 ==
LOC: COL.ER 13:38 → MEDICAL 17:57
PROVIDERS: Hospitalist; Nurse Practitioner; Nurse Practitioner Family; Physician Assistant; ADMIT Internal Medicine
DX: A41.9 Sepsis, unspecified organism (principal); K57.92 Diverticulitis of intestine, part unspecified, without perforation or abscess without bleeding; C34.90 Malignant neoplasm of unspecified part of unspecified bronchus or lung; C78.7 Secondary malignant neoplasm of liver and intrahepatic bile duct; E87.1 Hypo-osmolality and hyponatremia; E87.20 Acidosis, unspecified; J44.9 Chronic obstructive pulmonary disease, unspecified; I10 Essential (primary) hypertension; D64.9 Anemia, unspecified; E87.6 Hypokalemia; E83.42 Hypomagnesemia; E83.51 Hypocalcemia; R53.81 Other malaise; B37.9 Candidiasis, unspecified; G89.29 Other chronic pain
CPT/HCPCS: C9113; J0612; J1650; J2543; J3010; J3475; J7030; P9016; Q9967

== ENCOUNTER 2023-05-18 12:51 | Outpatient (CLI) | payer MEDICARE ==
[~2023-05-18] VITALS: Ht 162.6 cm; Wt 53.4 kg
[~2023-05-18 12:51] MED LIST changes: +ALOXII; +ANTACID500 M1 PO; +ATIVAN 0.50.5 MG/TAB PO; +CARBOPLATIN; +CINVANTI130 MG/18; +CINVANTI130 MG/18 IV; +DECADRON0.5 MG; +IMFINZI120 MG/2.4; +MIRALAX PA17 GM/Dose PO; +NARCAN4 MG NS; +NICODERM C14 MG/PATC TD; +NYSTATIN OR100 MU/ML PO; +PARAPLATIN150 MG/VIA IV; +PREDNISONE20 MG PO; +ROXICODONE 55 MG/TAB PO; +UDENYCA; +ZOMETA4 MG/5 ML; +[UNRECOGNIZED DRUG - OTHER]; +[UNRECOGNIZED DRUG - OTHER]
[2023-05-18] MEDS ORDERED: NATURAL IRON65 MG (13:21)
[2023-05-18 13:27] VITALS: BP 124/74; PULSE 94; TEMP 98.4
== END 2023-05-18 14:24 | disposition home or self-care (01) ==
LOC: EUO 12:51
DX: C34.90 Malignant neoplasm of unspecified part of unspecified bronchus or lung (principal)
CPT/HCPCS: C1751

== ENCOUNTER 2023-07-06 06:09 | Day surgery (SDC) | payer MEDICARE ==
[~2023-07-06] VITALS: Ht 162.6 cm; Wt 51.4 kg
[~2023-07-06 06:09] MED LIST changes: +LR 1,000 ML IV SCH; +NATURAL IRON65 MG; +PROTONIX 40MG T40 MG PO
[2023-07-06 07:11] VITALS: BP 114/68; PULSE 109; TEMP 98
[2023-07-06] MEDS ORDERED: Lidocaine PF 2% (20 MG/ML) 5 ML VIAL ONE (07:51)
[2023-07-06] MEDS ORDERED: Midazolam 2 MG/2 ML VIAL ONE (07:51)
[2023-07-06] MEDS ORDERED: Topical Skin Adhesive 1 EACH (1 ML) TOP ONE (08:00)
[2023-07-06] MEDS ORDERED: dexAMETHasone 10 MG/ML VIAL ONE (08:50)
[2023-07-06] MEDS ORDERED: Ondansetron 4 MG/2 ML VIAL ONE (08:50)
[2023-07-06] MEDS ORDERED: oxyCODONE 5 MG TAB PO PRN (09:15)
[2023-07-06] MEDS ORDERED: Ondansetron 4 MG/2 ML VIAL IV PRN (09:15)
[2023-07-06] MEDS ORDERED: Acetaminophen 325 MG TAB PO PRN (09:15)
[2023-07-06 09:16] VITALS: BP 100/62; PULSE 102; TEMP 98
[2023-07-06 09:30] VITALS: BP 123/78; PULSE 98
[2023-07-06 09:45] VITALS: BP 128/75; PULSE 96
[2023-07-06 10:00] VITALS: BP 125/75; PULSE 96
--- NOTE | 2023-07-06 10:25 | NUR ---
0916 RETURNS TO ROOM 8 PER CART. AWAKE, ALERT. HOB ELEVATED 40 DEGREES. RESP UNLABORED. VITAL SIGNS OBTAINED. INCICION RIGHT CHEST AND INCISION RIGHT NECK INTACT WITHOUT REDNESS OR DRAINAGE. DENIES SYSPNEA OR DISCOMFORT. CALL LIGHT AT SIDE. DAUGHTER IN ROOM 0930 TOLERATES PO JUICE WITHOUT NAUSEA 0940 AMOL FROM IV SERVICES HERE, DISCONTINUES PICC LINE FROM RIGHT UPPER ARM. HOB FLAT 0955 HOB REMAINS FLAT. INCISIONS REMAIN UNCHANGED. PATIENT DOZING 1000 AROUSES SPONTANEOUSLY. DISCHARGE INSTRUCTIONS REVIEWED. PATIENT AND DAUGHTER VERBALIZE UNDERSTANDING. COPY PROVIDED IN DISCHARGE FOLDER ALONG WITH PATIENT PACKET FOR PORTACAT. 1015 AWAKE. HOB ELEVATED 30 DEGREES. DRESSING PICC LINE SITE RIGHT UPPER ARM CLEAN DRY AND INTACT. NO EDEMA, REDNESS OR DISCOMFRT AT SITE 1020 SITS ON EDGE OF CART. DRESSES WITH MINIMAL ASSISTANCE
== END 2023-07-06 10:25 | disposition home or self-care (01) ==
LOC: SDCO 06:09
DX: C34.90 Malignant neoplasm of unspecified part of unspecified bronchus or lung (principal); C78.7 Secondary malignant neoplasm of liver and intrahepatic bile duct; C79.51 Secondary malignant neoplasm of bone; Z87.891 Personal history of nicotine dependence
CPT/HCPCS: C1788; J0690; J1100; J1644; J2250; J2405; J2704; J7120

== ENCOUNTER 2023-07-13 11:08 | Emergency (ER) | payer MEDICARE ==
[~2023-07-13] VITALS: Ht 162.6 cm; Wt 52.3 kg
[~2023-07-13 11:08] MED LIST changes: -LR 1,000 ML IV SCH; -NATURAL IRON65 MG; +NATURAL IRON65 MG PO
[2023-07-13 11:15] VITALS: TEMP 97.6
[2023-07-13] MEDS ORDERED: Ondansetron 4 MG/2 ML VIAL IV ONE (11:45)
[2023-07-13] MEDS ORDERED: LR 1,000 ML IV ONE (11:45)
[2023-07-13] MEDS ORDERED: Morphine 4 MG/ML VIAL IV ONE ×2 (11:45→13:00)
[2023-07-13] MEDS ORDERED: Ketorolac 15 MG/ML VIAL IV ONE (11:45)
[2023-07-13 12:23] LABS: COLLECTION METHOD CLEAN CATCH
[2023-07-13 12:39] LABS: HEMATOCRIT 37.4 % (37.0-47.0); HEMOGLOBIN 11.7 g/dl (12.5-16.0); MEAN CELL VOLUME 87 fl (80.0-100.0); MEAN CORPUSCULAR HEMOGLOBIN 27 pg (27-31); MEAN CORPUSCULAR HGB CONC 31 g/dl (33.0-37.0); MEAN PLATELET VOLUME 10.6 fl (7.4-10.4); PLATELET COUNT 321 K/mm3 (130-400); RED BLOOD COUNT 4.29 M/mm3 (4.10-5.30); REDCELL DISTRIBUTION WIDTH-CV 17.3 % (11.5-14.5)
[2023-07-13 12:42] LABS: PH 6.5 (5.0-8.5); URINE APPEARANCE CLEAR (CLEAR/HAZY); URINE BLOOD NEGATIVE (NEGATIVE); URINE COLOR YELLOW (YELLOW); URINE GLUCOSE NEGATIVE (NEGATIVE); URINE KETONE NEGATIVE (NEGATIVE); URINE NITRATE NEGATIVE (NEGATIVE); URINE PROTEIN(semi-quant) 1+ (NEGATIVE); URINE UROBILINOGEN 0.2 E.U/dL (0.2-1.0)
[2023-07-13 12:46] LABS: ALBUMIN 3.1 gm/dL (3.4-4.8); BILIRUBIN,TOTAL 0.5 mg/dL (0.2-1.2); CALCIUM 8.3 mg/dL (8.4-10.2); CREATININE, serum 0.5 mg/dL (0.57-1.11); POTASSIUM 3.5 mmol/L (3.5-4.5); TOTAL PROTEIN 6.3 gm/dL (6.2-8.1)
[2023-07-13] MEDS ORDERED: Iohexol 300 - 100 ML VIAL IV ONE (13:16)
[2023-07-13] MEDS ORDERED: NS 100 ML IV SCH (13:16)
[2023-07-13 13:32] LABS: BAND 4 % (0-10); LYMPHOCYTE 4 % (20.0-51.0); NEUTROPHILS 92 % (42.0-75.2)
[2023-07-13 13:34] LABS: ANISOCYTOSIS 1+
[2023-07-13 14:11] VITALS: BP 134/83; PULSE 116
[2023-07-21] MEDS ORDERED: MORPHINE 1515 MG/TAB PO (21:15)
[2023-07-22] MEDS ORDERED: ERGOCALCIFER50000 IU PO (17:51)
== END 2023-07-13 14:11 | disposition home or self-care (01) ==
LOC: COL.ER 11:08
PROVIDERS: Emergency Medicine
DX: K57.32 Diverticulitis of large intestine without perforation or abscess without bleeding (principal); C34.90 Malignant neoplasm of unspecified part of unspecified bronchus or lung; D70.9 Neutropenia, unspecified; Z79.899 Other long term (current) drug therapy
CPT/HCPCS: J1885; J2270; J2405; J7120; Q9967